=== PATIENT | male | born 1975 | race Two or more races ===

== ENCOUNTER → 2025-10-22 | Day surgery (SDC) | payer BC ==
[2025-10-20 14:24] LABS: Hematocrit 45.7 % (41.0-53.0); Hemoglobin 15.7 g/dL (13.5-17.5); Mean Corpuscular Hemoglobin 29.4 pg (28.0-32.0); Mean Corpuscular Volume 85.6 fL (80.0-100.0); Nucleated Red Blood Cells % 0.2 %
[2025-10-20 14:29] LABS: Urine Protein, UAD Negative (Negative)
[2025-10-20 14:40] LABS: INR 1.04 (0.9-1.15); Partial Thromboplastin Time 25.4 SEC (24.5-34.5); Prothrombin Time 11.0 sec (9.3-11.8)
[2025-10-20 14:53] LABS: Alanine Aminotransferase 31 U/L (7-40); Albumin 4.3 g/dL (3.2-4.8); Alkaline Phosphatase 93 U/L (46-116); Anion Gap 7 (5-15); BUN/Creatinine Ratio 15.0 (10.0-20.0); Blood Urea Nitrogen 17 mg/dL (9-23); Calcium 9.4 mg/dL (8.7-10.4); Carbon Dioxide 30 mmol/L (20-31); Chloride 106 mmol/L (98-107); Glucose 82 mg/dL (74-106); Potassium 4.4 mmol/L (3.5-5.1); Sodium 143 mmol/L (136-145); Total Protein 7.8 g/dL (5.7-8.2)
[2025-10-20 14:54] LABS: Bilirubin, Total 0.9 mg/dL (0.2-1.0)
[~2025-10-22] VITALS: Ht 177.8 cm; Wt 94.8 kg
[~2025-10-22] MED LIST: ACE3T PO; KETOROLAC TROMETH 30 MG/ML 1ML VIAL IV ONE; MEPERIDINE HCL (25 MG/ML) 1ML VIAL IV ONE; MEPERIDINE HCL (25 MG/ML) 1ML VIAL ONE; MIDAZOLAM HCL 2MG/2ML 2ml VIAL (1mg/ml) IV PRN; MIDAZOLAM HCL 2MG/2ML 2ml VIAL (1mg/ml) ONE; MORPHINE SULFATE 4 MG/ML SYR/VIAL IV PRN; ONDANSETRON HCL 4 MG/2 ML VIAL ONE; PROPOFOL 10 MG/ML 20 ML IV ONE; ROCURONIUM 10MG/ML 10ML VIAL IV ONE; SUGAMMADEX 200mg/2ml Vial (100MG/ML) IV ONE; ceFAZolin 2 GM/D5W50ml 50 ML IV ONE; fentaNYL CITRATE 100 MCG/2 ML VL ONE; hydrALAZINE HCL 20 MG/ML VL IV PRN
[2025-10-22] MEDS: BUPIVACAINE 0.5% P/F INJ 10 ML VIAL ONE (11:55)
[2025-10-22] MEDS: LIDOCAINE W/ EPINEPHRINE 1% 20ML VIAL ONE (11:55)
[2025-10-22 12:12] VITALS: TEMP 97.4; O2SAT 100
[2025-10-22] MEDS: ONDANSETRON HCL 4 MG/2 ML VIAL IV PRN (12:17)
[2025-10-22] MEDS: HYDROmorphone HCL 2 MG/ML VL/or syr IV PRN (12:18)
--- NOTE | 2025-10-22 12:47 | DVHOP ---
DATE OF SURGERY: 10/22/2025 PREOPERATIVE DIAGNOSIS: Umbilical hernia. POSTOPERATIVE DIAGNOSIS: Umbilical hernia. SURGEON: Manas Bran MD SENIOR ENGINEERING MANAGER: Lexa Ocasoi NP. ANESTHESIA: General endotracheal anesthesia. ANESTHESIOLOGIST: Mr. Hanna. PROCEDURE: Repair of umbilical hernia. DESCRIPTION OF PROCEDURE: Under general endotracheal anesthesia, the patient's skin prepped and draped, infiltrated with 0.25% Marcaine, 0.5% Xylocaine for postoperative analgesia. Incision was made in the supraumbilical area and deepened with electrocautery. The sac of the hernia was opened. It contained omentum. No bowel was within the hernia itself. The omentum was reduced into the peritoneal cavity. The hernia sac was excised and submitted for histopathologic examination. The edges of the hernia defect, which were approximately 2.5 cm apart, were approximated using #1 double-stranded Prolene in a horizontal mattress, creating a crest of tissue, which was then further reinforced with 0 Tevdek sutures. Hemostasis was meticulously accomplished and found to be complete at the termination of the procedure. There was no evidence of bleeding. The wound was irrigated. The area was aspirated, closure accomplished using Monocryl sutures, Dermabond, glue, and Steri-Strips. The patient remained stable throughout the procedure, left the operating room following accurate needle and sponge count. His , Keeley, was thoroughly informed at [phone]. Manas Bran MD PF/JULIETTE TID: [id number] RECEIPT: [id number]
[2025-10-22 13:20] VITALS: BP 118/79; PULSE 89; RESP 19; O2SAT 95
== END | disposition home or self-care (01) ==
LOC: SUR 08:13
PROVIDERS: ATTEND Surgery
DX: K42.9 Umbilical hernia without obstruction or gangrene (principal); Z79.899 Other long term (current) drug therapy; Z98.890 Other specified postprocedural states
CPT/HCPCS: 36415; 49591; 80053; 81001; 85025; 85610; 85730; 86850; 86900; 86901; 88302; J0690; J1100; J1171; J2175; J2250; J2405; J2704; J3010; J3490